=== PATIENT | male | born 1965 | race Asian ===

== ENCOUNTER 2023-10-22 18:32 | Emergency (ER) | payer OTHER, BC ==
[2023-10-22 18:39] VITALS: BP 123/87; PULSE 77; RESP 18; TEMP 97.6; BMI 27.1
[2023-10-22] MEDS ORDERED: ACETAMINOPHEN 500 MG TABLET (FP) ONE (19:12)
[2023-10-22] MEDS ORDERED: IBUPROFEN 600 MG TABLET (FP) PO ONE (19:12)
[2023-10-22] MEDS: IBUPROFEN 600 MG TABLET (FP) PO ONE (19:13)
[2023-10-22] MEDS: ACETAMINOPHEN 500 MG TABLET (FP) PO ONE (19:14)
== END 2023-10-22 19:58 | disposition home or self-care (01) ==
LOC: JERFT 18:32
DX: S93.401A Sprain of unspecified ligament of right ankle, initial encounter (principal); M25.571 Pain in right ankle and joints of right foot; M25.471 Effusion, right ankle; W01.0XXA Fall on same level from slipping, tripping and stumbling without subsequent striking against object, initial encounter; Y92.017 Garden or yard in single-family (private) house as the place of occurrence of the external cause
CPT/HCPCS: 73610-TC-RT-FY; 99283-25